=== PATIENT | female | born 1940 | race Caucasian/White ===

== ENCOUNTER → 2016-08-25 | Outpatient (CLI) | payer MEDICARE ==
--- NOTE | 2016-08-26 14:10 | MM ---
Reason for exam: follow-up at short interval from prior study. Last mammogram was performed 10 months ago. History: Patient is postmenopausal. Stereotactic core biopsy of the left breast, April 08, 2003. Cyst aspiration of the left breast. Cyst aspiration of the right breast. 2 excisional biopsies of the left breast. Took estrogen for 20 years beginning at age 43. Physical Findings: Nurse Summary: 1cm nodule in the left breast at 1 o'clock (nurse kp). MG 3D Diag Mammo W/Cad LT CC and MLO view(s) were taken of the left breast. Prior study comparison: October 29, 2015, bilateral MG 3d screening mammo w/cad. June 24, 2014, bilateral MG screening mammo w CAD. The breast tissue is heterogeneously dense. This may lower the sensitivity of mammography. Previous mammotome biopsy in the left breast. There is no discrete abnormality at BB. No significant new findings when compared with previous films. These results were verbally communicated with the patient and result sheet given to the patient on 08/25/16. ASSESSMENT: Benign, BI-RAD 2 RECOMMENDATION: Ultrasound core biopsy of the left breast. (based on ultrasound findings) PENDING APPOINTMENT FOR SURGICAL CONSULTATION.
--- NOTE | 2016-08-26 14:13 | USB ---
Reason for exam: follow-up at short interval from prior study. History: Patient is postmenopausal. Stereotactic core biopsy of the left breast, April 08, 2003. Cyst aspiration of the left breast. Cyst aspiration of the right breast. 2 excisional biopsies of the left breast. Took estrogen for 20 years beginning at age 43. US Breast LT Left breast ultrasound including all four quadrants, the retroareolar region and axilla demonstrates a 7 x 7 x 11mm shadowing, suspicious lesion at 1 o'clock, a 5mm cystic cluster at 5 o'clock, a 2mm lesion too small to characterize at 10 o'clock, a 5 x 4 x 5mm cystic lesion at 9 o'clock and a 2mm cystic lesion at 9 o'clock. These results were verbally communicated with the patient and result sheet given to the patient on 08/26/16. ASSESSMENT: Suspicious, BI-RAD 4 RECOMMENDATION: Ultrasound core biopsy of the left breast. PENDING APPOINTMENT FOR SURGICAL CONSULTATION.
== END | disposition home or self-care (01) ==
LOC: RADMAMWWP 13:33
PROVIDERS: ATTEND Internal Medicine Geriatric Medicine
DX: R92.8 Other abnormal and inconclusive findings on diagnostic imaging of breast (principal)
CPT/HCPCS: 76641; G0206; G0279

== ENCOUNTER → 2016-09-09 | Day surgery (SDC) | payer MEDICARE ==
[~2016-09-09] MED LIST: ALPRAZolam 0.25 MG TAB ONE; BACITRACIN OINT 1 EACH PACKET TOPICAL ONE; LIDOCAINE 1% INJ 10MG/ML (20 ML MDV) ONE; SODIUM BICARB 4% 5 ML VIAL (0.48 MEQ/ML) ONE
--- NOTE | 2016-09-09 09:41 | USB ---
EXAMINATION TYPE: US biopsy breast VAD LT, MG diagnostic mammo LT wo CAD DATE OF EXAM: 09/09/2016 9:34 AM CLINICAL HISTORY: R92.8 Abn mammogram. Palpable abnormality left breast. TECHNIQUE: Ultrasound guided core biopsy of left breast with clip placement and follow-up two-view mammogram. COMPARISON: Left breast diagnostic mammogram and ultrasound August 25, 2016 and older studies. FINDINGS: The procedure of ultrasound guided core biopsy was explained to the patient. Benefits, alternatives, and risks were discussed. An informed consent was then obtained. The patient was placed in supine positioning for imaging and for the procedure. Preprocedure imaging redemonstrates vague shadowing irregular hypoechoic area measuring 5 x 6 x 10 mm at 1:00 position in the left breast. The overlying skin was prepped and draped in usual sterile fashion. Lidocaine buffered with bicarbonate was used as anesthetic into the skin. Lidocaine with epinephrine is used as anesthetic into the deeper tissue up to area of concern in the left breast. Under ultrasound guidance, a 12-gauge vacuum assisted biopsy gun device was used to obtain 4 core samples. Following this, a biopsy clip was left in lesion. The patient tolerated the procedure well without any immediate complication. The patient was kept in the radiology department for short stay after the procedure and then discharged home in stable condition. Postprocedure mammogram shows successful deployment of the clip corresponding to prior level of palpable abnormality. IMPRESSION: Successful, uncomplicated ultrasound guided core biopsy of area of concern in the left breast, full pathology results to follow. Intermediate index of suspicion noted at time of procedure. Pathology Results: Benign BREAST, LEFT, CORE BIOPSY: FIBROCYSTIC CHANGES INCLUDING FIBROSIS AND CYSTS. FEATURES FOCALLY SUGGESTIVE OF SCAR AND/OR PREVIOUS BIOPSY SITE. Recommendation Follow up ultrasound of the left breast in 6 months. MTDD
== END | disposition home or self-care (01) ==
LOC: RADUSWWP 07:53
PROVIDERS: ATTEND Internal Medicine Geriatric Medicine
DX: N60.32 Fibrosclerosis of left breast (principal); N60.02 Solitary cyst of left breast
CPT/HCPCS: 88305; 19083; G0206; A4648; J2001

== ENCOUNTER → 2017-08-30 | Outpatient (CLI) | payer MEDICARE ==
--- NOTE | 2017-08-30 15:38 | US ---
EXAMINATION TYPE: US kidneys/renal and bladder DATE OF EXAM: 08/30/2017 COMPARISON: NONE CLINICAL HISTORY: R94.4 Abnormal Results Of Kidney Function Studies. Abnormal results of kidney funct ion studies EXAM MEASUREMENTS: Right Kidney: 10.5 x 4.7 x 5.4 cm Left Kidney: 10.3 x 4.8 x 4.8 cm Difficult and limited study due to patient body habitus Right Kidney: no hydro or masses seen Left Kidney: 2.6 x 1.4 x 2.6cm isoechoic area mid pole, possible prominent column of debbie Bladder: not fully distended Bilateral Jets seen: no IMPRESSION: 1. Isoechoic medullary mass versus normal morphology variant. CT abdomen with contrast the kidneys co uld further evaluate this finding. 2. Kidneys are otherwise unremarkable.
== END | disposition home or self-care (01) ==
LOC: RADUSWWP 13:24
PROVIDERS: ATTEND Internal Medicine Geriatric Medicine
DX: R94.4 Abnormal results of kidney function studies (principal)
CPT/HCPCS: 76770

== ENCOUNTER → 2017-10-06 | Outpatient (CLI) | payer MEDICARE ==
[2017-10-06 17:14] LABS: Hemoglobin A1C 6.5 % (4.0-6.0)
== END ==
LOC: LABWHC1 09:08
PROVIDERS: ATTEND Internal Medicine
DX: E10.9 Type 1 diabetes mellitus without complications (principal)
CPT/HCPCS: 36415; 82043; 82570; 83036

== ENCOUNTER → 2017-10-17 | Outpatient (CLI) | payer MEDICARE ==
--- NOTE | 2017-10-18 08:38 | MM ---
Reason for exam: additional evaluation requested from prior study. Last mammogram was performed 1 year and 1 month ago. History: Patient is postmenopausal. Benign US biopsy breast VAD LT of the left breast, September 09, 2016. Stereotactic core biopsy of the left breast, April 08, 2003. Cyst aspiration of the left breast. Cyst aspiration of the right breast. 2 excisional biopsies of the left breast. Took estrogen for 20 years beginning at age 43. Physical Findings: Nurse did not find any significant physical abnormalities on exam. MG 3D Diag Mammo W/Cad CHRISS Bilateral CC and MLO view(s) were taken. Prior study comparison: September 09, 2016, left breast MG diagnostic mammo LT wo CAD. August 25, 2016, left breast MG 3d diag mammo w/cad LT. The breast tissue is heterogeneously dense. This may lower the sensitivity of mammography. There are new loosely grouped calcifications of the upper outer quadrant of the right breast at posterior depth spanning approximately 1.2cm. Some are coarse heterogeneous and the anterior round and punctate. No suspicious abnormality in the left breast. Left post biopsy change. These results were verbally communicated with the patient and result sheet given to the patient on 10/17/17. ASSESSMENT: Suspicious, BI-RAD 4 RECOMMENDATION: Stereotactic core biopsy of the right breast. Patient chooses to speak with Dr. Aguayo next week in office at her 's appointment regarding biopsy. Patient does not was to scheduled biopsy or see surgeon at this time. Office called on 10/17/17 and spoke with anya Orourke update. PRELIMINARY REPORT CALLED AND FAXED TO DR. AGUAYO ON 10/18/17.
--- NOTE | 2017-10-18 08:40 | USB ---
Reason for exam: additional evaluation requested from prior study. History: Patient is postmenopausal. Benign US biopsy breast VAD LT of the left breast, September 09, 2016. Stereotactic core biopsy of the left breast, April 08, 2003. Cyst aspiration of the left breast. Cyst aspiration of the right breast. 2 excisional biopsies of the left breast. Took estrogen for 20 years beginning at age 43. US Breast LT Left breast ultrasound includes all four quadrants, the retroareolar region and axilla. Finding demonstrates a 7 x 6 x 12mm irregular, solid, hypoechoic lesion at 1 o'clock previously biopsied, similar to prior, a 6 x 4 x 8mm oval, cystic lesion at 9 o'clock and a 3 x 2 x 3mm oval, cystic lesion at 9 o'clock. These results were verbally communicated with the patient and result sheet given to the patient on 10/17/17. ASSESSMENT: Benign, BI-RAD 2 RECOMMENDATION: Routine screening mammogram of both breasts in 1 year.
== END | disposition home or self-care (01) ==
LOC: RADMAMWWP 13:35
PROVIDERS: ATTEND Internal Medicine Geriatric Medicine
DX: N60.02 Solitary cyst of left breast (principal); M81.0 Age-related osteoporosis without current pathological fracture
CPT/HCPCS: 77066; 76641; G0279

== ENCOUNTER → 2017-10-25 | Outpatient (CLI) | payer MEDICARE ==
--- NOTE | 2017-10-25 13:07 | CT ---
EXAMINATION TYPE: CT abdomen w con DATE OF EXAM: 10/25/2017 COMPARISON: NONE HISTORY: Renal cyst CT DLP: 676.2 mGycm Automated exposure control for dose reduction was used. TECHNIQUE: Helical acquisition of images was performed from the lung bases through the top of iliac crest to include entire abdomen. CONTRAST: Performed with Oral Contrast and with IV Contrast, patient injected with 80 mL of Isovue 300. FINDINGS: LUNG BASES: No significant abnormality is appreciated. LIVER/GB: No significant abnormality is appreciated. PANCREAS: No significant abnormality is seen. SPLEEN: No significant abnormality is seen. ADRENALS: No significant abnormality is seen. KIDNEYS: No solid or cystic renal mass identified. No evidence for hydronephrosis or nephrolithiasis. BOWEL: No significant abnormality is seen. LYMPH NODES: No significant abnormality is seen. OSSEOUS STRUCTURES: Severe degenerative change lumbar spine. FREE AIR: No free air is visualized. IMPRESSION: 1. No evidence of solid or cystic renal lesion.
== END | disposition home or self-care (01) ==
LOC: RADCTMAIN 11:34
PROVIDERS: ATTEND Internal Medicine Geriatric Medicine
DX: N28.1 Cyst of kidney, acquired (principal)
CPT/HCPCS: 82565; 84520; 74160; 36415; Q9967

== ENCOUNTER → 2017-11-03 | Outpatient (CLI) | payer MEDICARE ==
--- NOTE | 2017-11-03 11:23 | BD ---
EXAMINATION TYPE: Axial Bone Density DATE OF EXAM: 11/03/2017 COMPARISON: NONE CLINICAL HISTORY: Osteoporosis per order. Height: 66inches Weight: 180 FRAX RISK QUESTIONS: Alcohol (3 or more units per day): no Family History (Parent hip fracture): no Glucocorticoids (More than 3mos): no (Ex: prednisone, prednisolone, methylprednisolone, dexamethasone, and hydrocortisone). History of Fracture in Adulthood: yes Secondary Osteoporosis: 1. Type 1 Diabetes: yes 2. Hyperthyroidism: no 3. Menopause before 45: hysterectomy 40, menopause 49 4. Malnutrition: no 5. Chronic liver disease: no Rheumatoid Arthritis: no Current Tobacco Use: no RISK FACTORS HISTORY OF: Hip Fracture (Right/Left): right When: after 2000 Surgery to Spine/Hip(left & right): yes When: left replacement about 2015 Family History of Osteoporosis: unsure Active: yes Diet low in dairy products/other sources of calcium: no Postmenopausal woman: no Take estrogen and/or progesterone medications: not now How long: about age [age] Lost more than 2 inches in height since high school: at one time was about 68 inches Frequent falls: no Poor Health: fair Hyperparathyroidism: no Adrenal Insufficiency: no MEDICATIONS: Prednisone or other steroids: no Thyroid Medications: yes Which medication: Synthroid How Long: since was in 40's Osteoporosis Medications: no Additional Medications: insulin pump , blood pressure meds, statins several times a week Additional History: diabetic; years ago 1/2 of thyroid removed; bilateral hip replacements EXAM MEASUREMENTS: Bone mineral densitometry was performed using the [employer] System. Bone mineral density as measured about the Lumbar spine is: ----- L1-L4(G/cm2): 1.434 T Score Values are as follows: ----- L2: 2.2 ----- L3: 1.1 ----- L4: 1.7 ----- L1-L4: 2.1 Bone mineral density has: decreased -8.5% since study of: 02/13/2001 Bone mineral density about the L Wrist (g/cm2): 0.566 T Score values are as follows: -----Dist. R+U: 0.1 -----Prox. R+U: -1.7 -----Radius total: -1.8 Bone mineral density BASELINE for forearm IMPRESSION: Osteopenia (T Score between -2.5 and -1) overall within left forearm. There is slightly increased risk of fracture and the patient may be considered for treatment. Re-Screen 2-5 years. NOTE: T-SCORE=SD OF THE YOUNG ADULT MEAN.
== END | disposition home or self-care (01) ==
LOC: RADBDWWP 09:58
PROVIDERS: ATTEND Internal Medicine Geriatric Medicine
DX: M85.88 Other specified disorders of bone density and structure, other site (principal)
CPT/HCPCS: 77080

== ENCOUNTER → 2017-11-18 | Outpatient (CLI) | payer MEDICARE ==
[2017-11-18 10:32] VITALS: BP 138/78; PULSE 78; TEMP 98.6; BMI 28.1
--- NOTE | 2017-11-18 11:22 | P.GSHP ---
History of Present Illness H&P Date: 11/18/17 Patient is a 77 year old white female noted to have an area of abnormality in the right breast: There were noted to be course as well as brown and punctate calcifications in an area spanning 1.2 cm in the upper outer quadrant of the right breast. No mammographic abnormalities of concern were noted in the left breast. The mammogram was done 10-17-17. The patient did have an ultrasound of the left breast, 10-17-17 and ultrasound was felt to be benign. She had an area which was 7 x 12 mm and irregular which had previously been biopsied and noted to be benign. The patient does not feel anything of concern in her breast. The patient has no pain in her breasts. The patient has on occasion noted a small flaking from the left nipple area, this has been ongoing for many years and has not changed. family history: mother: lung brother: pancreatic 3 brothers: lung cancer were smokers menarche: 12 : 4, breast fed all, first at 17 menopause: hysterectomy early 40's did not take ovaries; done for fibroids BCP: 8 years Hormones: 5-10 years social history: smoke: never, family smoked alcohol: twice a month drugs: none HEENT: glasses occasional tinnitus Lungs: none Heart: A-fib, on eliquis GI: none : hysterectomy muskeletal: arthritis, hip surgery neurologic: balance poor at times skin: none endocrine: diabetic, on a pump allergies: seasonal allergies past surgical history: 1. hysterctomy 2. shoulder Right 3. bilateral hips 4. biopsies of the left breast one in the operating room, all benign medical history: 1. diabetic 2. atrial fib - Constitutional Constitutional: Denies chills, Denies fever - EENT Eyes: bilateral as per HPI Ears: bilateral: tinnitus Ears, nose, mouth and throat: Denies headache, Denies sore throat - Breasts Breasts: bilateral: as per HPI - Cardiovascular Cardiovascular: Reports high blood pressure, Reports irregular heart beat - Respiratory Respiratory: Denies cough, Denies 7 - Gastrointestinal Comment: had a colonoscopy about ten years ago, she is going to do a cologuard test as per Dr. Aguayo Gastrointestinal: Denies abdominal pain, Denies diarrhea, Denies nausea, Denies vomiting - Genitourinary (Female) Genitourinary: Denies dysuria, Denies hematuria - Musculoskeletal Comment: arthritis - Integumentary Integumentary: Denies pruritus, Denies rash - Neurological Neurological: Denies numbness, Denies weakness - Psychiatric Psychiatric: Denies anxiety, Denies depression - Endocrine Comment: diabetes - Hematologic/Lymphatic Comment: Eloquis - Allergic/Immunologic Allergic/Immunologic: Reports seasonal allergies Past Medical History Past Medical History: Atrial Fibrillation, Diabetes Mellitus, GERD/Reflux, Hyperlipidemia, Hypertension, Osteoarthritis (OA), Thyroid Disorder History of Any Multi-Drug Resistant Organisms: None Reported Past Surgical History: Appendectomy, Breast Surgery, Hysterectomy, Joint Replacement Additional Past Surgical History / Comment(s): tot rt hip,tot rt shoulder,denisse cataracts, denisse carpel tunnel, breast biopsy, thyroidectomy, right cataract extraction, colonoscopy in December 2010, hysterectomy. Past Anesthesia/Blood Transfusion Reactions: No Reported Reaction Past Psychological History: No Psychological Hx Reported Smoking Status: Never smoker Past Alcohol Use History: None Reported Past Drug Use History: None Reported - Past Family History Mother Family Medical History: Cancer, COPD Additional Family Medical History / Comment(s): lung CA Father Family Medical History: Chest Pain / Angina, Coronary Artery Disease (CAD) Additional Family Medical History / Comment(s): heart problems Son(s) Family Medical History: Cancer, Coronary Artery Disease (CAD) Additional Family Medical History / Comment(s): CABG Brother(s) Family Medical History: Cancer Additional Family Medical History / Comment(s): LUNG CANCER ALL SMOKERS Sister(s) Family Medical History: No Reported History Daughter(s) Family Medical History: No Reported History Medications and Allergies Home Medications Medication Instructions Recorded Confirmed Type Apixaban [Eliquis] 2.5 mg PO BID 05/31/16 06/08/16 History Aspirin 81 mg PO DAILY 05/31/16 06/08/16 History Biotin 5 mg PO DAILY 05/31/16 06/08/16 History Calcium Carbonate [Tums Ultra 1,177 mg PO DAILY 05/31/16 06/08/16 History Strength] Ergocalciferol (Vitamin D2) 50,000 unit PO Q14D 05/31/16 06/08/16 History [Vitamin D2] Hydrochlorothiazide 50 mg PO DAILY 05/31/16 06/08/16 History [Hydrochlorothiazide] Insulin Aspart (For Pump) [NovoLOG 0.01 unit SQ-PUMP CONTINUOUS 05/31/16 History (For Pump)] Levothyroxine Sodium [Levoxyl] 125 mcg PO QAM 05/31/16 06/08/16 History Lisinopril 40 mg PO HS 05/31/16 06/08/16 History Loratadine [Claritin] 10 mg PO DAILY 05/31/16 06/08/16 History Meloxicam [Mobic] 7.5 mg PO BID 05/31/16 06/08/16 History Metoprolol Tartrate 25 mg PO BID 05/31/16 06/08/16 History Omeprazole 20 mg PO QAM 05/31/16 06/08/16 History Pravastatin Sodium [Pravachol] 20 mg PO Q2D 05/31/16 06/08/16 History Ubidecarenone [Co Q-10] 100 mg PO DAILY 05/31/16 06/08/16 History HYDROcodone/APAP 5-325MG [[place] 1 - 2 each PO Q4-6H PRN #90 tab 06/09/16 Rx 5-325] Sennosides-Docusate Sodium 1 tab PO BID #60 tablet 06/09/16 Rx [Senokot-S] Allergies Allergy/AdvReac Type Severity Reaction Status Date / Time Penicillins Allergy Rash/Hives Verified 06/08/16 08:06 Sulfa (Sulfonamide Allergy Rash/Hives Verified 06/08/16 08:06 Antibiotics) tape Allergy tears Uncoded 06/08/16 08:06 skin-states "paper tape ok" Surgical - Exam Vital Signs Temp Pulse BP Pulse Ox 98.6 F 78 138/78 97 11/18/17 10:25 11/18/17 10:25 11/18/17 10:25 11/18/17 10:25 - General walks with a cane well developed, well nourished, no distress - Eyes normal ocular movement - ENT no hearing loss, no congestion - Neck no masses, trachea midline - Respiratory normal respiratory effort, clear to auscultation - Cardiovascular Heart Sounds: normal: S1, S2 - Abdomen Abdomen: soft, non tender, no guarding, no rigid, no rebound - Neurologic no disoriented, no combative - Musculoskeletal uses a cane to walk - Psychiatric oriented to time, oriented to person, oriented to place, speech is normal, memory intact Breast examination: Right breast: Multiple positional exam no dominant masses or nodules of concern Right axilla: No adenopathy of concern Left breast: Multiple positional exam no dominant masses or nodules of concern, patient has had prior biopsies and changes are noted from prior biopsies Left axilla: No adenopathy of concern Assessment and Plan Assessment: Imp/Plan: 1. abnormal right breast mammogram/ultrasound cystic changes in the left breast felt to be benign 2. diabetes 3. atrial fibrillation 4. arthritis/mobic Plan: 1. right breast stero-biopsy 2. hold eloquis if ok with cardiology for at least 48 hours pre-procedure 3. hold mobic for 5 days pre-procedure 4. medical managment of medical problems CC: Dr. Aguayo
== END | disposition home or self-care (01) ==
LOC: WWCWWP 10:22
PROVIDERS: ATTEND Surgery
DX: Z53.9 Procedure and treatment not carried out, unspecified reason (principal)

== ENCOUNTER → 2017-12-02 | Day surgery (SDC) | payer MEDICARE ==
[2017-12-02 07:39] VITALS: RESP 16; BMI 29.0
--- NOTE | 2017-12-02 10:25 | WWPCN ---
[facility] - PROCEDURE NOTE PREPROCEDURE DIAGNOSIS: Right breast mammographic abnormality, lateral breast mid depth. The patient is a 77-year-old white female status post bilateral mammogram in which an area of new calcifications were noted in the right breast in the outer mid section of the breast. The patient on physical examination did not have any dominant masses or nodules of concern in either breast and no adenopathy in the axilla of concern in either breast. After review of the radiographs with Radiology, it was recommended that the patient undergo a stereotactic core biopsy of the right breast. The location of the microcalcifications were in the lateral midportion of the breast. An initial attempt was made to target these from lateral to medial. However, this was unsuccessful and was necessary to target CC from below. After the area had been identified, there were several areas of calcification noted in this region and the most suspicious area was targeted. The breast was prepped using Betadine and 1% lidocaine was used to anesthetize the skin. Approximately 15 mL of lidocaine were used and this was 1% lidocaine and sodium bicarb was added approximately 2 mL. The needle was driven to the correct coordinates after the targets had been chosen. Prefire and post fire films were obtained. There were 2 areas of calcification which we hoped to target. One was at approximately the 6 o'clock position with the needle and the other was between the 12 to 2 o'clock position. Multiple core biopsies were obtained and radiograph of the specimen was obtained. The area of most concern was felt to be at 6 o' clock and it was felt that this area was adequately sampled. It was felt that there was at least a partial sampling of the area at the 12 to 2 o'clock position in the specimen radiograph. After discussion with Radiology, it was felt that we would leave a secure zeus. Await pathology and depending on results of pathology either wide excision of the entire area or repeat mammogram in 6 months' time would be recommended with particular attention to the more coarse calcifications in the vicinity. The top hat SecurMark was placed. Specimen was sent to pathology. This specimen was obtained using a 9-gauge vacuum assisted needle biopsy device. Specimen was sent to pathology. The patient will follow with Dr. Dias in approximately a week and a half. Please note, no immediate complications were noted. MMODL / IJN: [id number] / [facility]
[2017-12-02 10:52] VITALS: BP 115/73; PULSE 69; TEMP 98.1
--- NOTE | 2017-12-02 11:28 | MM ---
EXAMINATION TYPE: MG stereo VAD BX RT DATE OF EXAM: 12/02/2017 COMPARISON: 10/17/2018 CLINICAL HISTORY: Indeterminate right breast calcifications for which stereotactic biopsy was recommended. TECHNIQUE: Stereotactic guided core biopsy of right breast. FINDINGS: The procedure of stereotactic guided core biopsy was explained to the patient. Benefits, alternatives, and risks were discussed. An informed consent was then obtained. Preprocedural timeout was performed. The shortness pathway for biopsy was chosen. Shortness pathway was CC from below approach. I performed the localization, then surgeon, Dr. Arun Tamayo performed the remainder of the procedure. A vacuum assisted biopsy gun was used to obtain multiple core samples. The patient tolerated the procedure well without any immediate complication. The patient was kept in the radiology department for short stay after the procedure and then discharged home in stable condition. Targeted calcifications are identified in specimen mammogram with some coarse and some punctate calcifications. Post biopsy mammogram shows the clip to appear in satisfactory position relative to the targeted area of concern on the preprocedure images. IMPRESSION: SUCCESSFUL, UNCOMPLICATED STEREOTACTIC GUIDED CORE BIOPSY OF AREA OF CONCERN IN THE RIGHT BREAST, FULL PATHOLOGY RESULTS TO FOLLOW. For the remaining calcifications six-month follow-up would be recommended upon benign radiologic/ pathologic correlation and surgical excision would be recommended upon malignant radiologic/pathologic correlation Pathology Results: Benign RIGHT BREAST, NEEDLE CORE BIOPSIES: Fibrocystic and fibroadenomatoid changes including stromal fibrosis and mild duct cystic changes. Microscopic intraductal mineralizations are identified. Recommendation Follow up mammogram of the right breast in 6 months. BONIFACIO
== END | disposition home or self-care (01) ==
LOC: RADMAMWWP 07:11
PROVIDERS: ATTEND Surgery
DX: N60.31 Fibrosclerosis of right breast (principal); R92.8 Other abnormal and inconclusive findings on diagnostic imaging of breast
CPT/HCPCS: 88305; 19081; A4648; J2001

== ENCOUNTER → 2017-12-15 | Outpatient (CLI) | payer MEDICARE ==
--- NOTE | 2017-12-15 13:40 | P.PN ---
Subjective Progress Note Date: 12/15/17 Principal diagnosis: Patient status post stereotactic biopsy of the right breast, pathology benign and this was benign and concordant Patient status post right breast stereotactic core biopsy. Pathology is benign and concordant. Mild ecchymosis right lateral breast No evidence of infection Very small superficial hematoma Assessment and Plan Assessment: Impression/plan: 1. Patient status post stereotactic core biopsy of the right breast pathology benign 2. Repeat right breast mammogram in 6 months time with follow-up Cc: Dr. Aguayo
[2017-12-15 13:56] VITALS: BP 138/80; PULSE 68; TEMP 98.2; BMI 29.0
== END ==
LOC: WWCWWP 13:16
PROVIDERS: ATTEND Surgery
DX: N64.89 Other specified disorders of breast (principal)

== ENCOUNTER → 2018-06-27 | Outpatient (CLI) | payer MEDICARE ==
--- NOTE | 2018-06-29 15:07 | MM ---
Reason for exam: follow-up at short interval from prior study. Last mammogram was performed 8 months ago. History: Patient is postmenopausal. Benign MG stereo VAD BX RT of the right breast, December 02, 2017. Benign US biopsy breast VAD LT of the left breast, September 09, 2016. Stereotactic core biopsy of the left breast, April 08, 2003. Cyst aspiration of the left breast. Cyst aspiration of the right breast. 2 excisional biopsies of the left breast. Took estrogen for 20 years beginning at age 43. Physical Findings: Nurse did not find any significant physical abnormalities on exam. MG 3D Diag Mammo W/Cad RT CC, MLO, and XCCL view(s) were taken of the right breast. Prior study comparison: October 17, 2017, bilateral MG 3d diag mammo w/cad [facility]. September 09, 2016, left breast MG diagnostic mammo LT wo CAD. The breast tissue is heterogeneously dense. This may lower the sensitivity of mammography. Previous biopsy right breast, same residual course calcifications at the benign biopsy site. Benign secretory calcifications. Stable anterior lymph node. These results were verbally communicated with the patient and result sheet given to the patient on 06/27/18. No significant changes when compared with prior studies. ASSESSMENT: Benign, BI-RAD 2 RECOMMENDATION: Routine screening mammogram of both breasts in 4 months.
== END ==
LOC: RADMAMWWP 08:52
PROVIDERS: ATTEND Surgery
DX: R92.8 Other abnormal and inconclusive findings on diagnostic imaging of breast (principal)
CPT/HCPCS: 77065; G0279; 77061

== ENCOUNTER → 2018-06-29 | Outpatient (CLI) | payer MEDICARE ==
[2018-06-29 09:36] VITALS: BP 134/90; PULSE 96; RESP 18; TEMP 96.3; BMI 29.7
--- NOTE | 2018-06-29 10:07 | P.PN ---
Subjective Progress Note Date: 06/29/18 Principal diagnosis: Stacey is a 77-year-old white female who is status post stereotactic core biopsy of the right breast in November 2017. Pathology was benign and was believed to be benign concordant. The patient has no complaints with respect to her breast at this time. She underwent a repeat right breast mammogram on 1818. This was felt to be benign and repeat bilateral mammogram to be back on schedule is recommended. Patient does not have any areas of concern in either breast at this time. History: Mother: Lung cancer Brother: Pancreatic cancer 3 brothers: Lung cancer they were smokers Social history: Smoke: Never Alcohol: Occasional Drugs: Negative Past surgical history: 1. Hysterectomy 2. Shoulder surgery right 3. Bilateral hip surgery 4. Biopsies of the left breast on in the operating room all benign Medical history: 1. Diabetic 2. Atrial fibrillation Review of systems: HEENT: Glasses, occasional tinnitus Lungs: Negative Heart: Atrial fibrillation an Ellik was GI: Negative : Status post hysterectomy Musculoskeletal: Arthritis, hip surgery Skin: Negative Neurologic: Balance poor at times Endocrine: Diabetic on a pump ALLERGIES: Seasonal Objective - Vital Signs Vital signs: Vital Signs Temp 96.3 F L 06/29/18 09:32 Pulse 96 06/29/18 09:32 Resp 18 06/29/18 09:32 BP 134/90 06/29/18 09:32 Pulse Ox 96 06/29/18 09:32 Intake & Output 06/28/18 06/29/18 06/29/18 18:59 06:59 18:59 Weight 83.461 kg - Exam BMI 29.7 - Constitutional General appearance: Present: average body habitus, cooperative - EENT Eyes: Present: EOMI ENT: Present: hearing grossly normal - Neck Neck: Present: normal ROM - Respiratory Respiratory: bilateral: CTA - Cardiovascular Rhythm: regular Heart sounds: normal: S1, S2 - Gastrointestinal General gastrointestinal: Present: soft - Integumentary Integumentary: Present: normal turgor - Musculoskeletal Musculoskeletal Comment(s): rip uses cane after hip surgery - Psychiatric Psychiatric: Present: A&O x's 3, appropriate affect, intact judgment & insight - Additional findings Additional findings: Examination: Breast examination: Right breast: Multi-positional exam dense breasts but no dominant masses or nodules of concern Right axilla: No adenopathy of concern Left breast: Multi-positional exam no dominant masses or nodules of concern, dense breast Left axilla: No adenopathy of concern Assessment and Plan Assessment: Impression: 1. Bilateral dense breast no radiographic or palpable lesions of concern 2. History of bilateral hip surgery 3. History of shoulder surgery 4. Diabetes with an insulin pump Plan: 1. Repeat bilateral mammogram in 5 months time with physician exam at that time 2. Medical management of medical conditions CC: Dr. Aguayo
== END | disposition home or self-care (01) ==
LOC: WWCWWP 09:13
PROVIDERS: ATTEND Surgery
DX: Z53.9 Procedure and treatment not carried out, unspecified reason (principal)

== ENCOUNTER → 2018-11-06 | Outpatient (CLI) | payer MEDICARE ==
--- NOTE | 2018-11-07 08:51 | MM ---
Reason for exam: follow-up at short interval from prior study. Last mammogram was performed 4 months ago. History: Patient is postmenopausal. Benign MG stereo VAD BX RT of the right breast, December 02, 2017. Benign US biopsy breast VAD LT of the left breast, September 09, 2016. Stereotactic core biopsy of the left breast, April 08, 2003. Cyst aspiration of the left breast. Cyst aspiration of the right breast. 2 excisional biopsies of the left breast. Took estrogen for 20 years beginning at age 43. Physical Findings: Nurse did not find any significant physical abnormalities on exam. MG 3D Diag Mammo W/Cad [facility] Bilateral CC and MLO view(s) were taken. Prior study comparison: June 27, 2018, right breast MG 3d diag mammo w/cad RT. October 17, 2017, bilateral MG 3d diag mammo w/cad [facility]. The breast tissue is heterogeneously dense. This may lower the sensitivity of mammography. Benign appearing bilateral calcifications. Previous mammotome biopsy in the right and left breast. There is chronic nodularity in the right breast. No significant new findings when compared with previous films. These results were verbally communicated with the patient and result sheet given to the patient on 11/06/18. ASSESSMENT: Benign, BI-RAD 2 RECOMMENDATION: Routine screening mammogram of both breasts in 1 year.
== END | disposition home or self-care (01) ==
LOC: RADMAMWWP 13:10
PROVIDERS: ATTEND Surgery
DX: R92.8 Other abnormal and inconclusive findings on diagnostic imaging of breast (principal)
CPT/HCPCS: 77066; G0279; 77062

== ENCOUNTER → 2018-11-09 | Outpatient (CLI) | payer MEDICARE ==
[2018-11-09 10:01] VITALS: BP 126/81; PULSE 63; RESP 18; TEMP 97.9; BMI 29.0
--- NOTE | 2018-11-09 10:14 | P.PN ---
Subjective Progress Note Date: 11/09/18 Principal diagnosis: Fibrocystic breast changes Stacey is a 78-year-old white female who is status post stereotactic core biopsy of the right breast in November 2017, this was benign. Following that she had a repeat right breast mammogram in June of 2018 and on this radiograph there was some residual coarse calcifications at the benign biopsy site in the right breast. It was recommended she undergo routine screening mammogram of both breast in 4 months. That was performed on . On that mammogram there were benign-appearing bilateral calcifications. There was chronic nodularity in the right breast. No new findings were noted. An AP bilateral mammogram in 1 year was recommended. The patient has no complaints related to her breast at this time. Family history: Mother: Lung cancer Bladder: Pancreatic cancer 3 brothers: Lung cancer they were smokers Past surgical history: 1. Hysterectomy 2. Right shoulder surgery 3. Bilateral hip surgery 4. Biopsies of the left breast on in the operating room all benign 5. Stereo biopsy right breast benign Medical history: 1. Diabetes 2. Atrial fibrillation Social history: Smoke: Never Alcohol: Occasional Drugs: Negative Review of systems: HEENT: Negative Lungs: Negative Cardiac: There is called negative Musculoskeletal: Arthritis Integument: rash recently Psychologic: none Hematologic: Negative Objective - Vital Signs Vital signs: Vital Signs Temp 97.9 F 11/09/18 09:58 Pulse 63 11/09/18 09:58 Resp 18 11/09/18 09:58 BP 126/81 11/09/18 09:58 Pulse Ox 96 11/09/18 09:58 Intake & Output 11/08/18 11/09/18 11/09/18 18:59 06:59 18:59 Weight 81.647 kg - Exam BMI 29.1 - Constitutional General appearance: Present: average body habitus, cooperative - EENT Eyes: Present: EOMI ENT: Present: hearing grossly normal - Neck Neck: Present: normal ROM - Respiratory Respiratory: bilateral: CTA - Cardiovascular Rhythm: regular Heart sounds: normal: S1, S2 - Gastrointestinal General gastrointestinal: Present: soft - Integumentary Integumentary: Present: normal turgor - Musculoskeletal Musculoskeletal Comment(s): use a cane - Psychiatric Psychiatric: Present: A&O x's 3, appropriate affect, intact judgment & insight - Additional findings Additional findings: breast exam: right breast: Multi-positional exam no dominant masses or nodules of concern, fibrocystic changes Right axilla: No adenopathy of concern Left breast: Multi-positional exam no dominant masses or nodules of concern Left axilla: No adenopathy of concern Assessment and Plan Assessment: Impression: 1. Fibrocystic breast changes 2. Diabetes 3. Atrial fibrillation 4. Anticoagulation secondary to atrial fibrillation 5. Family history of cancer 6. Dense breast 7. No breast lesions of concern which would warrant interventional biopsy at this time 8. Arthritis Plan: 1. Repeat bilateral mammogram and physician exam in 1 year 2. Medical management of medical conditions 3. Patient to call sooner if she notes any changes in her breasts for which she is concerned CC: Dr. Aguayo
== END | disposition home or self-care (01) ==
LOC: WWCWWP 09:33
PROVIDERS: ATTEND Surgery
DX: Z53.9 Procedure and treatment not carried out, unspecified reason (principal)

== ENCOUNTER → 2020-05-06 | Outpatient (CLI) | payer MEDICARE ==
--- NOTE | 2020-05-06 14:14 | BD ---
EXAMINATION TYPE: Axial Bone Density DATE OF EXAM: 05/06/2020 COMPARISON: 11/03/2017 CLINICAL HISTORY: Height: 63.7 IN Weight: 186 LBS FRAX RISK QUESTIONS: Secondary Osteoporosis: 1. Type 1 Diabetes: YES RISK FACTORS HISTORY OF: Surgery to Hip([facility]): 1994 AND 2014 Active: LIMITED Postmenopausal woman: PARTIAL HYST AGE 44 Take estrogen and/or progesterone medications: NOT NOW How long: TOOK HORMONES FOR APPROX 10 YEARS Lost more than 2 inches in height since high school: YES 4" MEDICATIONS: Thyroid Medications: YES Which medication: Levothyroxine How Lon+ YEARS Additional Medications: VIT D, NOVOLOG INSULIN, LEVOXYL, OMEPRAZOLE, PRAVASTATIN, COQ10, LISINOPRIL,E LIQUIS, HCTZ, MELOXICAM, BABY ASPIRIN, METOPROLOL, BIOTIN, ZINC, FLONASE EXAM MEASUREMENTS: Bone mineral densitometry was performed using the [employer] [facility] System. Bone mineral density as measured about the Lumbar spine is: ----- L1-L4(G/cm2): 1.410 T Score Values are as follows: ----- L2: 2.0 ----- L3: 1.4 ----- L4: 1.2 ----- L1-L4: 1.9 Bone mineral density has: Decreased -1.6% since study of: 11/03/2017 [facility] HIP REPLACEMENTS 1994 AND 2004 Bone mineral density about the L Wrist (g/cm2): 0.504 T Score values are as follows: -----Dist. R+U: -1.5 -----Prox. R+U: -2.5 -----Radius total: -2.8 Bone mineral density has: Decreased -10.3% since study of: 11/03/2017 IMPRESSION: Osteopenia (T Score between -2.5 and -1). There is slightly increased risk of fracture and the patient may be considered for treatment. Re-Screen 2-5 years. NOTE: T-SCORE=SD OF THE YOUNG ADULT MEAN.
--- NOTE | 2020-05-08 08:33 | MM ---
Reason for exam: screening (asymptomatic). Last mammogram was performed 1 year and 6 months ago. History: Patient is postmenopausal. Benign MG stereo VAD BX RT of the right breast, December 02, 2017. Benign US biopsy breast VAD LT of the left breast, September 09, 2016. Stereotactic core biopsy of the left breast, April 08, 2003. Cyst aspiration of the left breast. Cyst aspiration of the right breast. 2 excisional biopsies of the left breast. Took estrogen for 20 years beginning at age 43. Physical Findings: A clinical breast exam by your physician is recommended on an annual basis and results should be correlated with mammographic findings. MG 3D Screening Mammo W/Cad Bilateral CC and MLO view(s) were taken. XCCL view(s) were taken of the right breast. Prior study comparison: November 06, 2018, bilateral MG 3d diag mammo w/cad [facility]. June 27, 2018, right breast MG 3d diag mammo w/cad RT. The breast tissue is heterogeneously dense. This may lower the sensitivity of mammography. No significant changes when compared with prior studies. ASSESSMENT: Benign, BI-RAD 2 RECOMMENDATION: Routine screening mammogram of both breasts in 1 year.
== END | disposition home or self-care (01) ==
LOC: RADMAMWWP 12:43
PROVIDERS: ATTEND Internal Medicine Geriatric Medicine
DX: Z12.31 Encounter for screening mammogram for malignant neoplasm of breast (principal); M85.80 Other specified disorders of bone density and structure, unspecified site; M81.0 Age-related osteoporosis without current pathological fracture
CPT/HCPCS: 77063; 77067; 77080

== ENCOUNTER 2021-04-28 06:02 | Day surgery (SDC) | payer MEDICARE ==
[2021-04-23 13:53] VITALS: BMI 29.7
[~2021-04-28 06:02] MED LIST changes: -ALPRAZolam 0.25 MG TAB ONE; -BACITRACIN OINT 1 EACH PACKET TOPICAL ONE; +LACTATED RINGERS 1,000 ML IV SCH; -LIDOCAINE 1% INJ 10MG/ML (20 ML MDV) ONE; -SODIUM BICARB 4% 5 ML VIAL (0.48 MEQ/ML) ONE; +SODIUM CHLORIDE 0.9% 1,000 ML IV SCH
[2021-04-28] MEDS ORDERED: SODIUM CHLORIDE 0.9% 500 ML 500 ML IV ONE (06:10)
[2021-04-28 06:38] VITALS: RESP 16; TEMP 99
[2021-04-28 06:40] LABS: Glucose,Whole Blood 186 mg/dL (75-99)
[2021-04-28] MEDS ORDERED: PROPOFOL 10 MG/ML 20 ML VIAL IV ONE (07:22)
[2021-04-28] MEDS ORDERED: LIDOCAINE 1% INJ 10MG/ML (20 ML MDV) ONE (07:22)
[2021-04-28 07:46] LABS: Calcium 10.7 mg/dL (8.4-10.2)
--- NOTE | 2021-04-28 07:48 | P.EPPROC ---
- EP Procedure Note Electrophysiology Procedure Note: Diagnosis Symptomatic persistent atrial fibrillation Procedure Electrical cardioversion Details Successful electrical cardioversion with a 200 J biphasic shock in the AP configuration Delivered energy is 254 J, successful Conversion to sinus rhythm in the 50s Patient is not on any antiarrhythmic drugs, she has tendency for bradycardia Ramirez Evaluate symptoms in sinus rhythm To see if symptoms of tiredness and fatigue have improved or not once in sinus rhythm Follow Dr. Nieto in about 4-6 weeks Follow-up Holter monitor prior to that
--- NOTE | 2021-04-28 07:50 | P.PRLE ---
RE: Stacey Montero Dear Tony Stacey is been complaining of tiredness and fatigue with a normal stress test and normal LV function She has persistent atrial fibrillation. Rate controlled Today I cardioverted to sinus rhythm with the hope that this would allow us to assess for any improvement in his symptoms while in sinus rhythm She is not on any antiarrhythmic drug therapy since she has a tendency for bradycardia I'll keep you posted on her progress Thank you for entrusting me with the care of the patient Warm regards Sincerely Segundo Nieto
[2021-04-28 09:46] VITALS: BP 117/72; PULSE 52
== END 2021-04-28 09:19 | disposition home or self-care (01) ==
LOC: CATHEP 06:02
PROVIDERS: ATTEND Internal Medicine Clinical Cardiac Electrophysiology
DX: I48.19 Other persistent atrial fibrillation (principal); Z20.822 Contact with and (suspected) exposure to COVID-19
CPT/HCPCS: 92960; 80048; 84443; 87635; J2001; J2704

== ENCOUNTER → 2021-06-16 | Outpatient (CLI) | payer MEDICARE ==
--- NOTE | 2021-06-18 14:29 | MM ---
Reason for exam: screening (asymptomatic). Last mammogram was performed 1 year and 1 month ago. History: Patient is postmenopausal. Benign MG stereo VAD BX RT of the right breast, December 02, 2017. Benign US biopsy breast VAD LT of the left breast, September 09, 2016. Stereotactic core biopsy of the left breast, April 08, 2003. Cyst aspiration of the left breast. Cyst aspiration of the right breast. 2 excisional biopsies of the left breast. Took estrogen for 20 years beginning at age 43. Physical Findings: A clinical breast exam by your physician is recommended on an annual basis and results should be correlated with mammographic findings. MG 3D Screening Mammo W/Cad Bilateral CC and MLO view(s) were taken. Prior study comparison: May 06, 2020, bilateral MG 3d screening mammo w/cad. November 06, 2018, bilateral MG 3d diag mammo w/cad [facility]. The breast tissue is extremely dense which could obscure a lesion on mammography. No significant changes when compared with prior studies. ASSESSMENT: Benign, BI-RAD 2 RECOMMENDATION: Routine screening mammogram of both breasts in 1 year.
== END | disposition home or self-care (01) ==
LOC: RADMAMWWP 10:58
PROVIDERS: ATTEND Internal Medicine Geriatric Medicine
DX: Z12.31 Encounter for screening mammogram for malignant neoplasm of breast (principal); Z78.0 Asymptomatic menopausal state
CPT/HCPCS: 77063; 77067

== ENCOUNTER → 2022-06-17 | Outpatient (CLI) | payer MEDICARE ==
--- NOTE | 2022-06-18 07:37 | MM ---
Reason for Exam: Screening (asymptomatic). Last screening mammogram was performed 12 month(s) ago. Patient History: Menarche at age 12. First Full-Term at age 18. Hysterectomy at age 40. Postmenopausal. Patient has history of breast feeding. Estrogen for 20 years from age 43 until age 63. Cyst Aspiration on the Right side. Cyst Aspiration on the Left side. Excisional Biopsy on the Left side. Excisional Biopsy on the Left side. 12/02/2017, Benign Core Biopsy on the right side. 09/09/2016, Benign Core Biopsy on the left side. 04/08/2003, Stereotactic Core Biopsy on the Left side. Risk Values: Shamika 5 year model risk: 1.7%. NCI Lifetime model risk: 2.3%. Prior Study Comparison: 09/09/2016 Left Diagnostic Mammogram, [facility]. 10/17/2017 Bilateral Diagnostic Mammogram, [facility]. 06/27/2018 Right Diagnostic Mammogram, [facility]. 11/06/2018 Bilateral Diagnostic Mammogram, [facility]. 05/06/2020 Bilateral Screening Mammogram, [facility]. 06/16/2021 Bilateral Screening Mammogram, [facility]. Tissue Density: The breast tissue is heterogeneously dense. This may lower the sensitivity of mammography. Findings: Analyzed By CAD. There is no suspicious group of microcalcifications or new suspicious mass in either breast. Benign calcifications within both breasts. Chronic nodularity within the right breast. No significant change from prior exams. Overall Assessment: Benign, BI-RAD 2 Management: Screening Mammogram of both breasts in 1 year. A clinical breast exam by your physician is recommended on an annual basis and results should be correlated with mammographic findings. Electronically signed and approved by: Alvarez Bowen D.O.
== END | disposition home or self-care (01) ==
LOC: RADMAMWWP 10:07
PROVIDERS: ATTEND Internal Medicine Geriatric Medicine
DX: Z12.31 Encounter for screening mammogram for malignant neoplasm of breast (principal); Z78.0 Asymptomatic menopausal state; Z98.890 Other specified postprocedural states
CPT/HCPCS: 77063; 77067

== ENCOUNTER → 2023-06-07 | Day surgery (SDC) | payer MEDICARE ==
[2023-06-06 09:18] VITALS: BMI 29.0
[~2023-06-07] MED LIST changes: -LACTATED RINGERS 1,000 ML IV SCH; +LIDOCAINE 1% INJ 10MG/ML (20 ML MDV) ONE; +LIDOCAINE 1% INJ 10MG/ML (20 ML MDV) SQ ONE
[2023-06-07 15:20] VITALS: BP 190/82; PULSE 60; RESP 16; TEMP 98.3
[2023-06-07] MEDS: CLINDAMYCIN 900 MG in DEXTROSE 5% IN WATER 50 ML IVPB PRN ×4 (16:28→16:32)
--- NOTE | 2023-06-07 16:47 | P.EPPROC ---
- EP Procedure Note Electrophysiology Procedure Note: Loop monitor implant Primary physicians: Dr. Aguayo Meter Changes Records Clerk: Dr. Nieto Indication: Tachybradycardia syndrome Patient was brought to the EP lab in a fasting state. Written informed consent was obtained prior to the procedure. The left pectoral area was prepped and draped per protocol. Intravenous antibiotic was administered preoperatively. A subcutaneous Loop monitor was implanted successfully and the wound was closed per protocol. The device was programmed to detect significant christine- arrhythmic and tachy-arrhythmic events, per protocol. Device and programming details: Bradycardia protocol
== END ==
LOC: CATHEP 13:50
PROVIDERS: ATTEND Internal Medicine Clinical Cardiac Electrophysiology
DX: R55 Syncope and collapse (principal); I10 Essential (primary) hypertension; I48.19 Other persistent atrial fibrillation; E78.5 Hyperlipidemia, unspecified; E11.9 Type 2 diabetes mellitus without complications; Z82.49 Family history of ischemic heart disease and other diseases of the circulatory system; Z79.82 Long term (current) use of aspirin; Z79.01 Long term (current) use of anticoagulants; Z79.899 Other long term (current) drug therapy
CPT/HCPCS: 33285; C1764; J2001; J0736

== ENCOUNTER → 2023-07-20 | Outpatient (CLI) | payer MEDICARE ==
--- NOTE | 2023-07-20 13:57 | BD ---
EXAMINATION TYPE: Axial Bone Density DATE OF EXAM: 07/20/2023 CLINICAL HISTORY: 82 years old Female. ICD-10 CODE: M81.0 AGE RELATED OSTEOPOROSIS Height: 63.4 Weight: 175 PT IN A WHEEL CHAIR FRAX RISK QUESTIONS: Glucocorticoids (More than 3mos): flomax (Ex: prednisone, prednisolone, methylprednisolone, dexamethasone, and hydrocortisone). Secondary Osteoporosis: yes 1. Type 1 Diabetes: yes 3. Menopause before 45: yes RISK FACTORS height loss HISTORY OF: Surgery to Hip(right/left: bilat hip replacements, 2004, 2014 hx of total shoulders MEDICATIONS: insulin dependent diabetic, insulin pump and loop recorder Thyroid Medications: yes, synthroid product for 40 yrs EXAM MEASUREMENTS: Bone mineral densitometry was performed using the [employer]. Bone mineral density as measured about the Lumbar spine is: ----- L1-L4(G/cm2): 1.398 T Score Values are as follows: ----- L1: 4.7 ----- L2: 1.1 ----- L3: 0.8 ----- L4: 0.7 ----- L1-L4: 1.8 Z Score Values are as follows: ----- L1: 6.1 ----- L2: 2.6 ----- L3: 2.2 ----- L4: 2.1 ----- L1-L4: 3.2 Bone mineral density has: Decreased -0.9% since study of: 05.06.2020 Bone mineral density about the L Wrist (g/cm2): 0.485 T Score values are as follows: -----Dist. R+U: -1.6 -----Prox. R+U: -2.4 -----Radius total: -2.9 Z Score values are as follows: -----Dist. R+U: 1.5 -----Prox. R+U: 0.7 -----Radius total: 0.2 Bone mineral density has: Increased 1.8% since study of: 05.06.2020 FRAX%s: no frax.... IMPRESSION: Osteoporosis (T Score less than -2.5). There is increased fracture risk and therapy is usually indicated based on age. Re-Screen 1-2 years. NOTE: T-SCORE=SD OF THE YOUNG ADULT MEAN.
--- NOTE | 2023-07-21 09:26 | MM ---
Reason for Exam: Screening (asymptomatic). Last mammogram was performed 1 year(s) and 1 month(s) ago. Patient History: Menarche at age 12. First Full-Term at age 18. Hysterectomy at age 40. Postmenopausal. Patient has history of breast feeding. Estrogen for 20 years from age 43 until age 63. Cyst Aspiration on the Right side. Cyst Aspiration on the Left side. Excisional Biopsy on the Left side. Excisional Biopsy on the Left side. 12/02/2017, Benign Core Biopsy on the right side. 09/09/2016, Benign Core Biopsy on the left side. 04/08/2003, Stereotactic Core Biopsy on the Left side. Risk Values: Shamika 5 year model risk: 1.6%. NCI Lifetime model risk: 2.0%. Prior Study Comparison: 05/06/2020 Bilateral Screening Mammogram, [facility]. 06/16/2021 Bilateral Screening Mammogram, [facility]. 06/17/2022 Bilateral MG 3D screening mammo w/cad, [facility]. Tissue Density: The breast tissue is heterogeneously dense. This may lower the sensitivity of mammography. Findings: Analyzed By CAD. There is no suspicious group of microcalcifications or new suspicious mass. Benign-appearing calcifications bilaterally. Overall Assessment: Benign, BI-RAD 2 Management: Screening Mammogram of both breasts in [address] [facility] will attempt to contact patient to return for supplemental views and ultrasound if indicated. Patient should continue monthly self-breast exams. A clinical breast exam by your physician is recommended on an annual basis. This exam should not preclude additional follow-up of suspicious palpable abnormalities. Note on Shamika scores and lifetime risk: 1. A Shamika score greater than 3% is considered moderate risk. If this is the case, consider specialist referral to assess eligibility for a risk reducing agent. 2. If overall lifetime risk for the development of breast cancer is 20% or higher, the patient may qualify for future screening with alternating mammogram and breast MRI. Electronically signed and approved by: Rafiq Champion DO
== END | disposition home or self-care (01) ==
LOC: RADBDWWP 10:42
PROVIDERS: ATTEND Internal Medicine Geriatric Medicine
DX: Z12.31 Encounter for screening mammogram for malignant neoplasm of breast (principal); M81.8 Other osteoporosis without current pathological fracture; E10.9 Type 1 diabetes mellitus without complications; Z78.0 Asymptomatic menopausal state
CPT/HCPCS: 77063; 77067; 77080

== ENCOUNTER → 2024-11-29 | Outpatient (CLI) | payer MEDICARE ==
--- NOTE | 2024-11-29 11:05 | MM ---
Reason for Exam: Screening (asymptomatic). Last mammogram was performed 1 year(s) and 5 month(s) ago. Patient History: Menarche at age 12. First Full-Term at age 18. Hysterectomy at age 40. Postmenopausal. Patient has history of breast feeding. Estrogen for 20 years from age 43 until age 63. Cyst Aspiration on the Right side. Cyst Aspiration on the Left side. Excisional Biopsy on the Left side. Excisional Biopsy on the Left side. 12/02/2017, Benign Core Biopsy on the right side. 09/09/2016, Benign Core Biopsy on the left side. 04/08/2003, Stereotactic Core Biopsy on the Left side. Risk Values: Shamika 5 year model risk: 1.4%. NCI Lifetime model risk: 1.4%. Prior Study Comparison: 06/16/2021 Bilateral Screening Mammogram, [facility]. 06/17/2022 Bilateral MG 3D screening mammo w/cad, [facility]. 07/20/2023 Bilateral MG 3D screening mammo w/cad, [facility]. Tissue Density: The breasts are heterogeneously dense, which may obscure small masses. Findings: Analyzed By CAD. There is no suspicious group of microcalcifications or new suspicious mass in either breast. Stable benign calcifications. Benign-appearing lymph nodes are noted margin right breast stable. Overall Assessment: Benign, BI-RAD 2 Management: Screening Mammogram of both breasts in 1 year. . Patient should continue monthly self-breast exams. A clinical breast exam by your physician is recommended on an annual basis. This exam should not preclude additional follow-up of suspicious palpable abnormalities. Note on Shamika scores and lifetime risk: 1. A Shamika score greater than 3% is considered moderate risk. If this is the case, consider specialist referral to assess eligibility for a risk reducing agent. 2. If overall lifetime risk for the development of breast cancer is 20% or higher, the patient may qualify for future screening with alternating mammogram and breast MRI. [facility], , 11/29/2024 11:01 AM. Electronically signed and approved by: Kavon Loco M.D. [facility]
== END | disposition home or self-care (01) ==
LOC: RADMAMWWP 10:03
PROVIDERS: ATTEND Internal Medicine Geriatric Medicine
DX: Z12.31 Encounter for screening mammogram for malignant neoplasm of breast (principal); R92.333 Mammographic heterogeneous density, bilateral breasts; Z78.0 Asymptomatic menopausal state
CPT/HCPCS: 77063; 77067